=== PATIENT | male | born 1980 | race Caucasian/White ===

== ENCOUNTER 2023-05-29 05:50 | Emergency (ER) | payer MEDICAID ==
[~2023-05-29] VITALS: Ht 175.3 cm; Wt 130.0 kg
[2023-05-29 06:54] VITALS: O2SAT 99
[2023-05-29 08:54] VITALS: BP 152/73; PULSE 81; RESP 21; TEMP 98.9
[2023-05-29 09:08] LABS: DIFFERENTIAL COMMENT 0; EOSINOPHILS % 1.8 % (0.0-5.0); HEMATOCRIT. 28.9 % (42.0-52.0); HEMOGLOBIN. 9.3 g/dL (14.0-18.0); LYMPHOCYTES % 22.7 % (20.0-50.0); MEAN CORPUSCULAR HEMOGLOBIN 25.1 pg (28.0-32.0); MEAN CORPUSCULAR HGB CONC 32.1 g/dL (31.0-37.0); MEAN CORPUSCULAR VOLUME 78.4 fL (80.0-94.0); MEAN PLATELET VOLUME 7.1 fl (7.4-10.4); MONOCYTES % 6.2 % (2.0-8.0); NEUTROPHILS % 68.3 % (40.0-76.0); PLATELET 444 x1000/uL (130-400); RED BLOOD CELL COUNT 3.69 mill/uL (4.7-6.1); RED CELL DISTRIBUTION WIDTH 15.6 % (11.6-14.6); WHITE BLOOD COUNT 9.3 x1000/uL (4.5-11.0)
[2023-05-29 09:16] LABS: PROTHROMBIN TIME 11.1 sec (9.6-11.0)
[2023-05-29 09:20] LABS: ALANINE AMINOTRANSFERASE 10 IU/L (10-49); ALBUMIN 3.4 g/dL (3.2-4.8); ASPARTATE AMINOTRANSFERASE 14 IU/L (<34); BILIRUBIN TOTAL 0.3 mg/dL (0.1-1.0); CALCIUM 8.3 mg/dL (8.7-10.4); CARBON DIOXIDE 23 mEq/L (21-32); CHLORIDE 98 mEq/L (98-107); CREATININE 2.7 mg/dL (0.6-1.3); GLUCOSE 205 mg/dL (70-105); PROTEIN TOTAL 9.5 g/dL (6.0-8.3); SODIUM 132 mEq/L (136-145); UREA NITROGEN BLOOD 38 mg/dL (9-23)
== END 2023-05-29 14:58 | disposition home or self-care (01) ==
LOC: ER 06:18 → CANBEDREQ 11:08 → ER 14:58
DX: T82.41XA Breakdown (mechanical) of vascular dialysis catheter, initial encounter (principal); E11.22 Type 2 diabetes mellitus with diabetic chronic kidney disease; N18.5 Chronic kidney disease, stage 5
CPT/HCPCS: 80053; 85025; 85610; 86850; 86900; 86901; 36415; 71045; 99284; Z7610 ×2